=== PATIENT | female | born 1980 | race African-American/Black ===

== ENCOUNTER 2020-01-01 10:43 | Outpatient (CLI) | payer OTHER ==
--- NOTE | 2020-01-01 11:07 | RAD ---
XR Chest Pa Lat STANDARD HISTORY: Preoperative evaluation COMPARISON: 11/13/2014 FINDINGS: The heart size is normal. The lungs are well expanded without focal areas of consolidation, pneumothorax or pleural effusions. IMPRESSION: No radiographic evidence of acute cardiopulmonary process.
== END 2020-01-01 10:44 | disposition home or self-care (01) ==
LOC: BICRAD 10:43
PROVIDERS: ATTEND Family Medicine
DX: Z01.818 Encounter for other preprocedural examination (principal)
CPT/HCPCS: 71046

== ENCOUNTER 2020-11-12 09:43 | Outpatient (CLI) | payer OTHER ==
--- NOTE | 2020-11-12 09:59 | RAD ---
EXAM: Two views chest PROVIDED CLINICAL HISTORY: Preop COMPARISON: 01/01/2020 FINDINGS: Cardiac and mediastinal silhouette appears within normal limits. Lungs appear free of significant opa city. No pleural fluid or pneumothorax apparent. IMPRESSION: No evidence for an acute cardiopulmonary process.
== END 2020-11-12 09:44 | disposition home or self-care (01) ==
LOC: BICRAD 09:43
PROVIDERS: ATTEND Physician Assistant
DX: Z01.818 Encounter for other preprocedural examination (principal)
CPT/HCPCS: 71046

== ENCOUNTER 2022-05-31 11:48 | Outpatient (CLI) | payer OTHER | END 2022-05-31 11:49 | disposition home or self-care (01) | LOC: SCSRAD 11:48 | PROVIDERS: ATTEND Physician Assistant | DX: Z01.811 Encounter for preprocedural respiratory examination (principal) | CPT/HCPCS: 71046 ==

== ENCOUNTER 2024-12-03 09:34 | Outpatient (CLI) | payer OTHER | END 2024-12-03 09:35 | disposition home or self-care (01) | LOC: BICMAMMO 09:34 | PROVIDERS: ATTEND Family Medicine | DX: Z12.31 Encounter for screening mammogram for malignant neoplasm of breast (principal); Z80.3 Family history of malignant neoplasm of breast | CPT/HCPCS: 77063; 77067 ==